=== PATIENT | female | born 1975 | race Caucasian/White ===

== ENCOUNTER 2021-01-16 08:11 | Outpatient (CLI) | payer BC, SELFPAY ==
--- NOTE | ~2021-01-16 | MR_ITS ---
EXAMINATION: MR ankle RT wo con DATE: 01/16/2021 09:09 INDICATION: Sprain of the deltoid ligament of right ankle, initial encounter. Right ankle pain. TECHNIQUE: Magnetic resonance imaging (MRI) of the right ankle was performed without intravenous cont rast. Sequences included sagittal PD-weighted FS FSE, sagittal PD-weighted FSE, coronal PD-weighted F S FSE, coronal PD-weighted FSE, axial PD-weighted FS FSE, and axial PD-weighted FSE. COMPARISON: Right ankle radiographs 01/12/2021 FINDINGS: Medial ankle ligaments: There are changes of prior sprain of superficial component of the deltoid ligament characterized by t hickening and increased signal intensity. There are changes of prior sprain of deep component of the deltoid ligament, which demonstrates some disorganized fibers. Lateral ankle ligaments: There are changes of prior sprains of anterior talofibular ligament and calcaneofibular ligament, lupillo racterized by thickening and increased signal intensity. Posterior talofibular ligament is intact. Th ere are changes of prior sprain of anterior tibiofibular ligament contrast by thickening and increase d signal intensity. Posterior tibiofibular ligament is intact. Tendons: The medial and anterior ankle tendons are normal. There is a longitudinal split tear of peroneus brev is tendon. The Achilles tendon is normal. Plantar fascia: The central band of the plantar fascia demonstrates thickening and increased signal intensity, consis tent with fasciitis. There is an enthesophyte at the calcaneal attachment. Bones/other: There is mild subchondral edema of the posterior medial talar dome with overlying cartilage surface i rregularity. There are tiny marginal osteophytes at the talonavicular joint. Fluid: There is no joint effusion. IMPRESSION: 1. Changes of medial and lateral ankle sprains. 2. Small stable osteochondral lesion of posterior medial talar dome. 3. Plantar fasciitis. 4. Longitudinal split tear of peroneus brevis tendon. Reviewed, dictated and finalized at location A. AGING SPECIALIST
== END 2021-01-16 08:12 ==
LOC: MICIMG 08:11
PROVIDERS: Visit Provider Orthopaedic Surgery
DX: S93.421A Sprain of deltoid ligament of right ankle, initial encounter (principal); X58.XXXA Exposure to other specified factors, initial encounter; M72.2 Plantar fascial fibromatosis
CPT/HCPCS: 73721

== ENCOUNTER 2021-06-22 10:11 | Outpatient (CLI) | payer BC, SELFPAY ==
--- NOTE | ~2021-06-22 | XR_ITS ---
EXAMINATION: XR sacroiliac joints min 3V DATE: 06/22/2021 11:09 INDICATION: Chronic pain of multiple joints and bilateral low back pain. TECHNIQUE: AP and left and right oblique views of the bilateral sacroiliac joints were obtained. COMPARISON: None. FINDINGS: Alignment is normal. No fracture. Sacral arches are intact. Bilateral sacroiliac joint spac es are normal and symmetric. No erosions to suggest inflammatory sacroiliitis. Mild bilateral hip ost eoarthritis. IMPRESSION: 1. Normal bilateral sacroiliac joints with mild bilateral hip osteoarthritis. Reviewed, dictated and finalized at location A.
--- NOTE | ~2021-06-22 | XR_ITS ---
EXAMINATION: XR foot LT 2V, XR foot RT 2V DATE: 06/22/2021 11:09 INDICATION: Chronic multiple joint pain and intermittent swelling and tightness in the bilateral feet . TECHNIQUE: 1. Dorsoplantar and lateral views of the left foot were obtained. 2. Dorsoplantar and lateral views of the right foot were obtained. COMPARISON: None. FINDINGS: Alignment is normal at both feet. No fracture. Mild osteoarthritis at the bilateral first metatarsoph alangeal and left tibiotalar joint and minimal to mild osteoarthritis at a few bilateral tarsometatar lulu and distal interphalangeal joints. Hypertrophic osteophyte along the dorsal right navicular. Smal l left and moderate-sized right plantar calcaneal spurs with additional tiny enthesopathic ossificati on at the proximal right plantar aponeurosis. No erosions to suggest an inflammatory arthritis. Soft tissues are unremarkable. IMPRESSION: 1. Mild polyarticular osteoarthritis at the bilateral mid and forefeet. No erosions to suggest inflam matory arthritis. Reviewed, dictated and finalized at location A. IMPRESSION: 1. Mild polyarticular osteoarthritis at the bilateral mid and forefeet. No eros ions to suggest inflammatory arthritis.
--- NOTE | ~2021-06-22 | XR_ITS ---
XR chest 2V DATE: 06/22/2021 11:09 INDICATION: Chronic pain in multiple joints, chronic bilateral low back pain TECHNIQUE: 2 views COMPARISON: September 02, 2015 2 view chest FINDINGS: Normal heart size. No hilar or mediastinal enlargement. No pulmonary infiltrate or consolid ation, pleural effusion or pulmonary congestion or pneumothorax. IMPRESSION: No active cardiopulmonary disease Reviewed, dictated and finalized at location A.
--- NOTE | ~2021-06-22 | XR_ITS ---
EXAMINATION: XR hand LT 2V, XR hand RT 2V DATE: 06/22/2021 11:09 INDICATION: Back pain of multiple joints. Intermittent swelling and tightness at the bilateral hands. TECHNIQUE: 1. Posteroanterior and lateral views of the left hand were obtained. 2. Posteroanterior and lateral views of the right hand were obtained. COMPARISON: None. FINDINGS: Normal alignment at the bilateral hands. No fracture. Joint spaces are relatively preserved in both h ands. No erosions to suggest inflammatory arthritis. Soft tissues are unremarkable. IMPRESSION: 1. Negative bilateral hand radiographs. Reviewed, dictated and finalized at location A. IMPRESSION: 1. Negative bilateral hand radiographs.
== END 2021-06-22 10:12 ==
LOC: MICIMG 10:12
PROVIDERS: PCP Physician Assistant Medical; Visit Provider Physician Assistant Medical
DX: M54.5 Low back pain (principal); G89.29 Other chronic pain; M16.0 Bilateral primary osteoarthritis of hip; M19.071 Primary osteoarthritis, right ankle and foot; M19.072 Primary osteoarthritis, left ankle and foot
CPT/HCPCS: 71046; 72202; 73120; 73620

== ENCOUNTER 2022-01-07 13:32 | Outpatient (CLI) | payer BC, SELFPAY ==
--- NOTE | ~2022-01-07 | MR_ITS ---
EXAMINATION: MR ankle LT wo con, MR foot LT wo con DATE: 01/07/2022 15:41 INDICATION: Bilateral foot and ankle pain TECHNIQUE: 1. Magnetic resonance imaging (MRI) of the left ankle was performed without intravenous contrast. Seq uences included sagittal, coronal, and axial proton-density weighted fast spin echo without and with fat saturation. 2. MRI of the left foot was performed without intravenous contrast. Sequences included sagittal and c oronal T1-weighted FSE, axial and coronal PD-weighted FS FSE, axial PD-weighted FSE and sagittal flui d sensitive FSE STIR. COMPARISON: None. FINDINGS: Medial ankle ligaments: Scarring along with small amount of heterotopic ossification at the deep deltoid ligament without eriberto rounding edema consistent with sequela of chronic sprain. Superficial deltoid ligament and the spring ligament complex are normal. Lateral ankle ligaments: The anterior and posterior inferior tibiofibular ligaments are normal. The anterior talofibular, calc aneofibular and posterior talofibular ligaments are normal. Tendons: Achilles tendon is normal. Small amount of fluid consistent with mild tenosynovitis in the tendon she ath surrounding the normal peroneus longus and brevis tendons. The tibialis anterior and extensor magdalena lucis longus and extensor digitorum longus tendons are normal. The tibialis posterior, flexor digitor um longus and flexor hallucis longus tendons are normal. Plantar fascia: Small plantar calcaneal spur with mild enthesopathy with mild thickening of the central component of the proximal plantar aponeurosis without surrounding soft tissue or marrow edema to suggest acute haris ntar fasciitis. Fore and midfoot ligaments: The Lisfranc ligament complex and the collateral ligament complex at the metatarsophalangeal and inte rphalangeal joints are normal. Bones/other: Bone alignment is normal. No fracture or pathologic marrow replacing process. Mild osteoarthritis at the ankle with small region of high-grade chondromalacia with underlying cortical irregularity and mi ld subarticular edema along the medial rim of the talar dome. Additional mild osteoarthritis at the f irst metatarsophalangeal joint and a few tarsal metatarsal and interphalangeal joints. Nonspecific fo jud mild subcutaneous edema overlying the dorsal aspect of the fifth metatarsal. Small ganglion cyst at the lateral aspect of the talonavicular articulation. No joint effusions. IMPRESSION: 1. Mild polyarticular osteoarthritis at the tibiotalar, first metatarsophalangeal and several tarsal metatarsal and interphalangeal joints. 2. Scarring consistent with chronic sprain of the the deltoid ligament. 3. Mild peroneal tenosynovitis. 4. Chronic mild plantar enthesopathy. Reviewed, dictated and finalized at location A. ICIAN RELATIONS SPECIALIST IMPRESSION: 1. Mild polyarticular osteoarthritis at the tibiotalar, first metatarsophalange al and several tarsal metatarsal and interphalangeal joints. 2. Scarring consistent with chronic sprain of the the deltoid ligament. 3. Mild peroneal tenosynovitis. 4. Chronic mild plantar enthesopathy.
--- NOTE | ~2022-01-07 | MR_ITS ---
EXAMINATION: MR ankle RT wo con, MR foot RT wo con DATE: 01/07/2022 14:46 INDICATION: Right foot and ankle pain 1. Magnetic resonance imaging (MRI) of the right ankle was performed without intravenous contrast. Se quences included sagittal, coronal, and axial proton-density weighted fast spin echo without and with fat saturation. 2. MRI of the right foot was performed without intravenous contrast. Sequences included sagittal and coronal T1-weighted FSE, axial and coronal PD-weighted FS FSE, axial PD-weighted FSE and sagittal flu id sensitive FSE STIR. COMPARISON: 01/16/2021 FINDINGS: Medial ankle ligaments: Scarring along with small amount of heterotopic ossification at the deep deltoid ligament without eriberto rounding edema consistent with sequela of chronic sprain. Thickening of the superficial deltoid ligam ent without surrounding edema consistent with additional scarring related to chronic sprain. The spri ng ligament complex is normal. Lateral ankle ligaments: The anterior and posterior inferior tibiofibular ligaments are normal. The anterior talofibular, calc aneofibular and posterior talofibular ligaments are normal. Tendons: Achilles tendon is normal. Small amount of fluid consistent with mild tenosynovitis in the the perone al tendon sheath. There is mild tendinopathy and longitudinal split tear of the peroneus brevis tendo n. Peroneus longus tendon is normal. The tibialis anterior and extensor hallucis longus and extensor digitorum longus tendons are normal. The flexor digitorum longus and flexor hallucis longus tendons a re normal. Additional small amount of fluid surrounding the normal tibialis posterior tendon consiste nt with additional mild tenosynovitis. Plantar fascia: Moderate-sized plantar calcaneal spur. There is thickening of the central component of the proximal p lantar aponeurosis system with chronic enthesopathy. No surrounding soft tissue or marrow edema to granados ggest acute plantar fasciitis. Fore and midfoot ligaments: The Lisfranc ligament complex and the collateral ligament complex at the metatarsophalangeal and inte rphalangeal joints are normal. Bones/other: Bone alignment is normal. No fracture or pathologic marrow replacing process. Mild osteoarthritis at the first metatarsophalangeal joint and a few tarsal metatarsal and interphalangeal joints. Small ost eophyte at the dorsal head of the talus and heterotopic ossicle along the thickened dorsal capsule of the talonavicular articulation suggesting sequela of chronic sprain. Couple small ganglion cysts at the dorsal aspect of the medial naviculocuneiform articulation. No joint effusions. IMPRESSION: 1. Mild polyarticular osteoarthritis at the first metatarsophalangeal and several tarsal metatarsal a nd interphalangeal joints. 2. Scarring consistent with chronic sprain of the the deep and superficial ligament and heterotopic o ssifications consistent with chronic sprain of the dorsal capsule the talonavicular joint. 3. Mild peroneal with mild tendinopathy and longitudinal split tearing of the peroneus brevis tendon. 4. Mild tibialis posterior tenosynovitis with normal appearing tendon. 5. Chronic enthesopathy of the proximal plantar aponeurosis. Reviewed, dictated and finalized at location A. FRAME TENDER IMPRESSION: 1. Mild polyarticular osteoarthritis at the first metatarsophalangeal and sever al tarsal metatarsal and interphalangeal joints. 2. Scarring consistent with chronic sprain of the the deep and superficial liga ment and heterotopic ossifications consistent with chronic sprain of the dorsal capsule the talonavicular joint. 3. Mild peroneal with mild tendinopathy and longitudinal split tearing of the p eroneus brevis tendon. 4. Mild tibialis posterior tenosyno
== END 2022-01-07 13:33 ==
PROVIDERS: PCP Internal Medicine; Visit Provider Physician Assistant Medical
DX: L40.52 Psoriatic arthritis mutilans (principal); M19.90 Unspecified osteoarthritis, unspecified site; M19.071 Primary osteoarthritis, right ankle and foot
CPT/HCPCS: 73718; 73721

== ENCOUNTER → 2023-03-29 09:57 | Outpatient (CLI) | payer BC, SELFPAY ==
--- NOTE | ~2023-03-29 | XR_ITS ---
XR sacroiliac joints min 3V 03/29/2023 10:12 Indication: Bilateral hip pain Procedure: 3 view sacroiliac joints Comparison: 06/22/2021 Findings: Bilateral sacroiliac joints are symmetric. No fracture, subluxation or dislocation. Sacral foramen are symmetric. No evidence for erosive change or ankylosis of the SI joints. Impression: 1: No significant abnormality of the sacroiliac joints. Reviewed, dictated and finalized at location B. Impression: 1: No significant abnormality of the sacroiliac joints.
== END ==
PROVIDERS: PCP Physician Assistant Medical; Visit Provider Physician Assistant Medical
DX: M25.50 Pain in unspecified joint (principal); G89.29 Other chronic pain; M54.50 Low back pain, unspecified
CPT/HCPCS: 72202

== ENCOUNTER 2023-04-09 10:31 | Emergency (ER) | payer BC, SELFPAY ==
[2023-04-09 10:43] VITALS: BP 149/107; PULSE 120; RESP 26; TEMP 36.7; O2SAT 100
--- NOTE | 2023-04-09 11:37 | ED.ALLEREA ---
HPI - Allergic Reaction General Chief complaint: Allergic Reaction Stated complaint: allergic reaction to cats Time Seen by Provider: 04/09/23 10:56 Source: patient Mode of arrival: ambulatory Limitations: no limitations History of Present Illness HPI narrative: Patient is a 47 y/o female who presents to the ED with c/o allergic reaction. Patient reports she took her dog to the vet yesterday and there were numerous cats in the waiting room. She is allergic to cats. Since then, she has had diffuse body itching, the sensation of her lips and tongue swelling, scratchy throat. She took Benadryl around 3 AM this morning, but has not taken anything further. Denies any rash, hives, difficulty swallowing or breathing, fevers, nausea, vomiting, chest pain. Patient does note she is very anxious about her symptoms. She has history of anxiety and takes Xanax prn. Patient denies any other allergen exposure, no new detergents, body wash, medications. Related Data Home Medications Medication Instructions Recorded Confirmed duloxetine 60 mg capsule,delayed 60 mg PO DAILY 01/12/21 04/03/23 release (Cymbalta) semaglutide 0.25 mg or 0.5 mg (2 mg subcut 04/09/23 04/09/23 mg/3 mL) subcutaneous pen injector (Ozempic) Allergies Allergy/AdvReac Type Severity Reaction Status Date / Time doxycycline Allergy Unknown Unknown Verified 04/09/23 10:46 iodine Allergy Unknown Unknown Verified 04/09/23 10:46 strawberry Allergy Unknown Unknown Verified 04/09/23 10:46 Sulfa (Sulfonamide Allergy Unknown Unknown Verified 04/09/23 10:46 Antibiotics) tramadol Allergy Unknown Unknown Verified 04/09/23 10:46 TIDE DETERGENT Allergy Unknown Unknown Uncoded 04/09/23 10:46 Review of Systems Review of Systems: CONSTITUTIONAL: Denies fever, chills, or sweats. ENT: See HPI. CARDIOVASCULAR: Denies chest pain. RESPIRATORY: Denies cough or dyspnea. GASTROINTESTINAL: Denies abdominal pain, nausea, vomiting. SKIN: See HPI. PSYCHIATRIC: See HPI. All systems reviewed & are unremarkable except as noted in HPI and below PMFSH Past Medical History Medical History Anxiety Arthritis Asthma Chronic headaches Depression Dyslipidemia Emma-Danlos syndrome Fibromyalgia Peterson's disease Hypothyroidism Impaired fasting blood sugar Migraines Tear of deltoid ligament of right ankle Surgical History Surgical History History of hysterectomy History of thyroidectomy Family History Family History Mother Family history of malignant neoplasm of breast in first degree relative Social History Social History Smoking status: Never smoker Second hand tobacco smoke exposure: No Alcohol intake: never Substance use: current Substance use type: marijuana Other substance usage details: gummies/edibles Lack of Transportation: No Lack of Food: Never True Current Housing: I Have Housing Concerned About Future Housing: No Difficulty Paying Gas/Electric Bills: No Difficulty Paying for Meds: No Currently Unemployed: No Education: High School Diploma/GED Difficulty w/ Childcare or Family Care: No Living arrangements: with friend(s) Occupation/Education: occupation Gender identity (if verbalized by the patient): Female Sexual Orientation (if Verbalized by the Patient): Straight or Heterosexual Exam Narrative: GENERAL: Well appearing, obese with BMI of 37.9, non-toxic, in no acute distress. HEAD: Normocephalic, atraumatic. EYES: PERRLA/EOMI, conjunctiva clear. ENT: Mucous membranes dry. No appreciable swelling of lips or tongue. Patent airway, able to visualize posterior pharynx. No tonsillar hypertrophy or exudate. Uvula midline. No stridor. No drooling. NECK: Supple. No adenopathy, n
[2023-04-09] MEDS: methylPREDNISolone SOD SUCC 125 MG VIAL IV PUSH (11:42)
[2023-04-09] MEDS: FAMOTIDINE 20 MG/2 ML VIAL IV PUSH (11:42)
[2023-04-09] MEDS: diphenhydrAMINE HCl INJ 50 MG/ML VIAL IV PUSH (11:42)
[2023-04-09 13:41] VITALS: BP 105/100; PULSE 95; RESP 18; O2SAT 100
== END 2023-04-09 13:43 | disposition home or self-care (01) ==
PROVIDERS: Emergency Provider Physician Assistant; PCP Physician Assistant Medical
DX: J30.81 Allergic rhinitis due to animal (cat) (dog) hair and dander (principal); Q79.60 Ehlers-Danlos syndrome, unspecified; E78.5 Hyperlipidemia, unspecified; E06.3 Autoimmune thyroiditis; F41.9 Anxiety disorder, unspecified; F32.A Depression, unspecified; Z79.51 Long term (current) use of inhaled steroids; Z79.899 Other long term (current) drug therapy
CPT/HCPCS: 96374; 96375; 99284; J1200; J2930

== ENCOUNTER 2023-07-17 11:30 | Emergency (ER) | payer BC, SELFPAY ==
--- NOTE | ~2023-07-17 | XR_ITS ---
EXAMINATION: XR chest 2V DATE: 07/17/2023 12:24 INDICATION: Shortness of breath TECHNIQUE: PA and lateral views of the chest are obtained. COMPARISON: 06/22/2021 FINDINGS: The lungs are free of acute opacities. No pleural effusion or pneumothorax. The cardiomedia stinal silhouette is normal. There is mild thoracic spondylosis. IMPRESSION: 1. No acute cardiopulmonary abnormality. Reviewed, dictated and finalized at location A.
--- NOTE | 2023-07-17 11:43 | ECG_ITS ---
Measurements Intervals [place] Rate: 101 P: 61 MT: 124 QRS: 54 QRSD: 81 T: 22 QT: 340 QTc: 442 Interpretive Statements SINUS TACHYCARDIA LOW QRS VOLTAGE IN PRECORDIAL LEADS NONSPECIFIC ST & T-WAVE ABNORMALITY- ANT/INF LEADS BASELINE ARTIFACT- I, III, AVR, AVL, AVF BORDERLINE ECG NO PREVIOUS ECG AVAILABLE FOR COMPARISON Electronically Signed On 07-19-2023 14:10:00 CDT by Olvin Philip D.O.
[2023-07-17 11:44] VITALS: BP 156/107; PULSE 100; RESP 20; TEMP 36.7; O2SAT 100
[2023-07-17 11:49] VITALS: PULSE 93
[2023-07-17 11:50] VITALS: O2SAT 100
--- NOTE | 2023-07-17 12:17 | ED.GENADULT ---
HPI - General Adult General Chief complaint: Shortness of Breath/Dyspnea Stated complaint: diff breathing Time Seen by Provider: 07/17/23 11:54 History of Present Illness HPI narrative: 48-year-old female with history of asthma presented to the emergency department for evaluation of worsening shortness of breath that started last night. Patient states that she started having some difficulty breathing yesterday and start taking a Medrol Dosepak what she had prescribed for her previous allergies. Patient states she does feel her breathing is improved. Patient reports she also does have some worsening anxiety. Patient does have a history of anxiety does take Xanax but patient did not take any Xanax prior to arrival. Related Data Home Medications Medication Instructions Recorded Confirmed alprazolam 1 mg tablet 1 mg PO TID PRN 06/13/23 06/13/23 cariprazine 1.5 mg capsule 1.5 mg PO DAILY 06/13/23 06/13/23 duloxetine 40 mg capsule,delayed 80 mg PO DAILY 06/13/23 06/13/23 release epinephrine 0.3 mg/0.3 mL 0.3 mg IM ONCE 06/13/23 06/13/23 injection, auto-injector famotidine 20 mg tablet 20 mg PO BID 06/13/23 06/13/23 hydroxyzine HCl 50 mg tablet 50 mg PO TID PRN 06/13/23 06/13/23 montelukast 10 mg tablet 10 mg PO QHS 06/13/23 06/13/23 naltrex BYMOUTH 06/13/23 06/13/23 naproxen 500 mg tablet 500 mg PO BID PRN 06/13/23 06/13/23 Allergies Allergy/AdvReac Type Severity Reaction Status Date / Time doxycycline Allergy Unknown Unknown Verified 07/11/23 08:05 iodine Allergy Unknown Unknown Verified 07/11/23 08:05 strawberry Allergy Unknown Unknown Verified 07/11/23 08:05 Sulfa (Sulfonamide Allergy Unknown Unknown Verified 07/11/23 08:05 Antibiotics) tramadol Allergy Unknown Unknown Verified 07/11/23 08:05 adhesive tape Allergy Rash Verified 07/17/23 11:53 TIDE DETERGENT Allergy Unknown Unknown Uncoded 07/11/23 08:05 Review of Systems Review of Systems: All systems reviewed & are unremarkable except as noted in HPI and below PMFSH Past Medical History Medical History (Updated 07/17/23 @ 13:38 by Angel Sanchez MD) Anxiety Arthritis Asthma Celiac disease Chronic headaches Depression Dyslipidemia 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, Dr Bridgett Easley, based on joint hypermobility and brain MRI showing 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, confirmed by genetics 2022 Fibromyalgia Peterson's disease Hypothyroidism Impaired fasting blood sugar Migraines Tear of deltoid ligament of right ankle Vocal cord dysfunction Surgical History Surgical History History of hysterectomy History of thyroidectomy Family History Family History Mother Family history of malignant neoplasm of breast in first degree relative Social History Social History Smoking status: Never smoker Second hand tobacco smoke exposure: No Alcohol intake: never Substance use: current Substance use type: marijuana Other substance usage details: gummies/edibles Lack of Transportation: No Lack of Food: Never True Current Housing: I Have Housing Concerned About Future Housing: No Difficulty Paying Gas/Electric Bills: No Difficulty Paying for Meds: No Currently Unemployed: No Education: High School Diploma/GED Difficulty w/ Childcare or Family Care: No Living arrangements: with friend(s) Occupation/Education: occupation Gender identity (if verbalized by the patient): Female Sexual Orientation (if Verbalized by the Patient): Straight or Heterosexual Exam Narrative: APPEARANCE: Well appearing, no pain, no distress, well-nourished. HEAD: normocephalic, atraumatic. EYES: PERRLA/EOMI, conjunctivae clear. NOSE: Normal no drainage NECK: Supple. No adenopathy, no masses. RESPIRATORY: Airway patent, respirations nonlabored. Clear to auscultation bi
[2023-07-17] MEDS: ALPRAZolam (*CRX) 0.5 MG TABLET 1 MG PO (12:29)
[2023-07-17 12:56] LABS: Influenza A QL RT-PCR Negative (Negative); Influenza B QL RT-PCR Negative (Negative); RSV RNA, RT-PCR Negative (Negative); SARS-CoV-2 RNA PCR Negative (Negative)
[2023-07-17 13:54] VITALS: BP 158/103; PULSE 91; RESP 18; O2SAT 97
== END 2023-07-17 13:56 | disposition home or self-care (01) ==
PROVIDERS: Emergency Provider Emergency Medicine; PCP Physician Assistant Medical
DX: F41.9 Anxiety disorder, unspecified (principal); R06.02 Shortness of breath; Z20.822 Contact with and (suspected) exposure to COVID-19; M19.90 Unspecified osteoarthritis, unspecified site; J45.909 Unspecified asthma, uncomplicated; F32.A Depression, unspecified; E03.9 Hypothyroidism, unspecified
CPT/HCPCS: 71046; 87637; 93005; 99283; A9270